=== PATIENT | female | born 1990 | race Caucasian/White ===

== ENCOUNTER 2022-08-30 17:27 | Emergency (ER) | payer OTHER, SELFPAY ==
--- NOTE | 2022-08-30 17:32 | DI.RAD.S_ITS ---
PROCEDURE: XR ELBOW LT MIN 3V INDICATIONS: fall pain TECHNIQUE: 3 views of the elbow were acquired. COMPARISON: None. FINDINGS: Bones: No fractures or dislocations. No suspicious bony lesions. Soft tissues: No elbow joint effusion. No suspicious soft tissue calcifications. IMPRESSION: No acute osseous abnormality demonstrated. Dictated by: Joseph Vega M.D. on 08/30/2022 at 19:32 Approved by: Joseph Vega M.D. on 08/30/2022 at 19:33
--- NOTE | 2022-08-30 17:32 | DI.RAD.S_ITS ---
PROCEDURE: XR WRIST LT MIN 3V INDICATIONS: fall TECHNIQUE: 3 views of the wrist were acquired. COMPARISON: None. FINDINGS: Bones: Distal radius fracture with mild impaction and dorsal angulation. No dislocations. No suspicious bony lesions. Soft tissues: No suspicious soft tissue calcifications. IMPRESSION: Distal radius fracture. Dictated by: Joseph Vega M.D. on 08/30/2022 at 19:33 Approved by: Joseph Vega M.D. on 08/30/2022 at 19:35
[2022-08-30 17:38] VITALS: BP 120/72; PULSE 59; RESP 14; TEMP 36.9; O2SAT 97; BMI 21.4
--- NOTE | 2022-08-30 17:47 | PC.NURSE ---
patient has decreased sensation in her lateral left hand but had a strong radial pulse and brisk cap refill in fingers
[2022-08-30] MEDS: HYDROMORPHONE 1 MG INJ IV (17:54)
[2022-08-30 18:04] VITALS: BP 122/65; PULSE 57; RESP 12; O2SAT 93
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
[2022-08-30 19:35] VITALS: BP 127/69; PULSE 62; RESP 12; O2SAT 96
== END 2022-08-30 19:43 | disposition home or self-care (01) ==
PROVIDERS: Emergency Provider Emergency Medicine
DX: S52.502A Unspecified fracture of the lower end of left radius, initial encounter for closed fracture (principal); V19.9XXA Pedal cyclist (driver) (passenger) injured in unspecified traffic accident, initial encounter
CPT/HCPCS: 29125; 73080; 73110; 96374; 99284; J1170